=== PATIENT | male | born 1960 | race Hispanic/Latino ===

== ENCOUNTER 2017-06-27 11:07 | Emergency (ER) | payer BC, OTHER ==
[~2017-06-27] VITALS: Ht 167.6 cm; Wt 76.2 kg
[~2017-06-27 11:07] MED LIST: LIPITOR20 MG PO
[2017-06-27] MEDS ORDERED: SODIUM CHLORIDE 0.9% 1000ML 1,000 ML IV STA (11:14)
[2017-06-27] MEDS ORDERED: MORPHINE SULFATE 4 MG/ML SYR IV STA (11:14)
[2017-06-27] MEDS ORDERED: ONDANSETRON HCL 4 MG ORAL DISINTEGRATING TAB PO ONE (11:15)
[2017-06-27] MEDS ORDERED: MORPHINE SULFATE 2 MG/ML SYR ONE (11:50)
[2017-06-27 11:53] LABS: BASOPHILS % 0.2 % (0.0-1.0); EOSINOPHILS # (AUTO) 0.1 (0.0-0.4); EOSINOPHILS % 0.9 % (0.0-6.0); HEMATOCRIT 45.1 % (38.2-49.6); HEMOGLOBIN 15.1 g/dL (14.0-18.0); LYMPHOCYTES # (AUTO) 2.9 (1.0-3.2); LYMPHOCYTES % 34.1 % (18.0-39.1); MEAN CORPUSCULAR HEMOGLOBIN 30.9 pg (28-32); MEAN CORPUSCULAR HGB CONC 33.5 g/dL (31-35); MEAN CORPUSCULAR VOLUME 92.4 fL (81-99); MONOCYTES # (AUTO) 0.5 (0.2-0.8); MONOCYTES % 6.3 % (4.4-11.3); NEUTROPHILS % 58.2 % (38.7-80.0); PLATELET COUNT 123 x10e3/uL (140-360); RED BLOOD COUNT 4.88 x10e6/uL (4.3-5.7); RED CELL DISTRIBUTION WIDTH 13.7 % (11.7-14.4)
--- NOTE | 2017-06-27 11:59 | Diagnostic Imaging Report ---
EXAM: CT Abdomen and Pelvis WITH contrast INDICATION: Left flank pain for one hour, nausea COMPARISON: None. TECHNIQUE: Abdomen and pelvis were scanned utilizing a multidetector helical scanner from the lung base to the pubic symphysis after administration of IV contrast. Coronal and sagittal reformations were obtained. Routine protocol is performed. IV CONTRAST: None. ORAL CONTRAST: Water RADIATION DOSE: Total DLP: 398.35 mGy*cm Estimated effective dose: (DLP x 0.015 x size factor) mSv COMPLICATIONS: None FINDINGS: LINES and TUBES: None. LOWER THORAX: Unremarkable HEPATOBILIARY: No focal hepatic lesions. No biliary ductal dilation. GALLBLADDER: No radio-opaque stones or sludge. No wall thickening. SPLEEN: No splenomegaly. PANCREAS: No focal masses or ductal dilatation. ADRENALS: No adrenal nodules KIDNEYS/URETERS: No cystic or solid mass lesions. 3 mm stone in the left distal ureter (series 3, image 134) with mild left hydroureter. No hydronephrosis. No other renal or ureteral stones on either side. GI TRACT: No abnormal distention, wall thickening, or evidence of bowel obstruction. Small hiatal hernia. Sigmoid diverticulosis without evidence of acute diverticulitis. PELVIC ORGANS/BLADDER: Unremarkable. LYMPH NODES: No lymphadenopathy. VESSELS: Unremarkable. PERITONEUM / RETROPERITONEUM: No free air or fluid. There is fatty stranding at the root of the mesentery with a few prominent mesenteric lymph nodes. BONES: Unremarkable. SOFT TISSUES: Unremarkable. IMPRESSION: 1. 3 mm stone in the left distal ureter with mild left hydroureter. 2. Fatty stranding at the root of the mesentery ("lan mesentery" appearance). This is nonspecific and may be due to inflammatory conditions (such as retractile mesenteritis) or lymphoproliferative diseases. The clinical significance is unclear. Consider follow-up CT of the abdomen in 6 months to ensure stability. Rasheed Rousseau MD Signed by: Dr. Rasheed Rousseau M.D. on 06/27/2017 11:55 AM
[2017-06-27 12:01] LABS: COLOR,URINE YELLOW (YELLOW)
[2017-06-27 12:02] LABS: BILIRUBIN,URINE NEGATIVE (NEGATIVE); CLARITY,URINE HAZY (CLEAR); KETONES,URINE NEGATIVE (NEGATIVE); LEUKOCYTE ESTERASE ,URINE NEGATIVE (NEGATIVE); NITRITE,URINE NEGATIVE (NEGATIVE); PROTEIN,URINE DIPSTICK TRACE (NEGATIVE); URINE UROBILINOGEN 0.2 mg/dL (0.2 - 1)
[2017-06-27 12:11] LABS: WBC,URINE (MAN) 0-5 /HPF (0-5)
[2017-06-27 12:12] LABS: BACTERIA,URINE FEW /HPF; EPITHELIAL CELLS,URINE FEW /LPF
[2017-06-27 12:13] LABS: ALBUMIN/GLOBULIN RATIO 1.1 (0.8-2.0); ANION GAP 11.2 mmol/L (8-16); CALCIUM 9.8 mg/dL (8.4-10.2); CREATININE, SERUM 1.5 mg/dL (0.72-1.25); POTASSIUM 4.2 mmol/L (3.5-5.1)
[2017-06-27] MEDS ORDERED: HYDROMORPHONE 1MG/1ML INJ IV NR (12:16)
[2017-06-27] MEDS ORDERED: HYDROMORPHONE 1MG/1ML INJ IV STA (12:39)
[2017-06-27] MEDS ORDERED: HYDROMORPHONE 2MG/ML INJ IV NR (12:45)
[2017-06-27 14:10] VITALS: BP 140/95
== END 2017-06-27 14:12 | disposition home or self-care (01) ==
LOC: ER 11:07
DX: R10.32 Left lower quadrant pain (principal); R11.0 Nausea; N20.1 Calculus of ureter
CPT/HCPCS: 36415; 74176; 80053; 81001; 85025; 87086; 99284; J2270; J7030

== ENCOUNTER 2017-06-29 13:02 | Emergency (ER) | payer OTHER ==
[~2017-06-29] VITALS: Ht 167.6 cm; Wt 76.2 kg
--- OUTSIDE RECORDS SUMMARY | 2017-06-29 13:05 | XMS REPORT | Continuity of Care Document ---
Author Author [facility] Organization [facility] Address [address] [place] [address] Phone Unavailable Care Team Providers Care Computer Help Desk Representative Name Role Phone NO, PCP PCP Unavailable Insurance Providers Guarantor López Fowler Address [place] [phone] Email [email or web address] Payer [employer] Ppo Policy Number [id number] Subscriber's Name López Fowler Relationship 18 Self / Same As Patient Group Number [id number] Group Name [employer] Effective Date 10 Advance Directives Directive Response Recorded Date/Time Does the patient have an advance directive? No 08/14/12 10:48pm If yes, is advance directive on file with [facility]? No 08/14/12 10:48pm If not on file with [facility] will patient provide a copy? No 08/14/12 10:48pm Do you have a Directive to Physician? No 06/27/17 11:36am Do you have a Medical Power of Account Group Supervisor? No 06/27/17 11:36am Do you have an out of hospital Do Not Resuscitate Order? No 06/27/17 11:36am Do you have any special needs we should be aware of? No 06/27/17 11:36am Do you have a support person here with you today? Yes 06/27/17 11:36am Did patient receive Notice of Privacy Practices? Yes 06/27/17 11:36am Did patient receive patient rights and responsibilities? Yes 06/27/17 11:36am Problems No problem information available. Medications Current Home Medications Medication Dose Units Route Directions Days Qty Instructions Start Date Atorvastatin Calcium (Lipitor) 20 Mg Tablet 1 Tab Oral Rt Daily Social History Smoking Status Start Date Stop Date Never Smoker Hospital Discharge Instructions No hospital discharge instruction information available. Plan of Care Discharge Date 06/27/17 2:12pm Disposition HOME, SELF-CARE Condition at Discharge Stable Instructions/Education Provided Kidney Stones Forms Provided Work/School Excuse Prescriptions See Medication Section Referrals AIDE CORONA MD Address: [facility] [place] [address] Additional Instructions/Education 1. increase oral fluids 2. return to ed as needed 3. follow up with urologist in 1-2 days without fail Functional Status No functional status information available. Allergies, Adverse Reactions, Alerts No known allergies. Immunizations No immunization information available. Vital Signs Acute Vital Signs Vital Response Date/Time Pulse Pulse Rate (adult) 65 bpm (60 - 90) 06/27/2017 2:10pm Respiratory Rate 20 bpm (12 - 24) 06/27/2017 2:10pm Blood Pressure 140/95 mm Hg 06/27/2017 2:10pm Height 5 ft 6 in 06/27/2017 11:10am Weight 168 lb 06/27/2017 11:10am Body Mass Index 27.1 kg/m^2 06/27/2017 11:10am Results Laboratory Results Test Name Result Units Flags Reference Collection Date/Time Result Date/ Time Comments White Blood Count 8.58 x10e3/uL 4.8-10.8 06/27/2017 11:45am 06/27/2017 11:57am Red Blood Count 4.88 x10e6/uL 4.3-5.7 06/27/2017 11:45am 06/27/2017 11: 57am Hemoglobin 15.1 g/dL 14.0-18.0 06/27/2017 11:45am 06/27/2017 11:57am Hematocrit 45.1 % 38.2-49.6 06/27/2017 11:45am 06/27/2017 11:57am Mean Corpuscular Volume 92.4 fL 81-99 06/27/2017 11:45am 06/27/2017 11: 57am Mean Corpuscular Hemoglobin 30.9 pg 28-32 06/27/2017 11:452017 11:57am Mean Corpuscular Hemoglobin Concent 33.5 g/dL 31-35 06/27/2017 11:4506/27/2017 11:57am Red Cell Distribution Width 13.7 % 11.7-14.4 06/27/2017 11:452017 11:57am Platelet Count 123 x10e3/uL L 140-360 06/27/2017 11:4506/27/2017 11: 57am Neutrophils (%) (Auto) 58.2 % 38.7-80.0 06/27/2017 11:45am 06/27/2017 11:57am Lymphocytes (%) (Auto) 34.1 % 18.0-39.1 06/27/2017 11:4506/27/2017 11:57am Monocytes (%) (Auto) 6.3 % 4.4-11.3 06/27/2017 11:4506/27/2017 11: 57am Eosinophils (%) (Auto) 0.9 % 0.0-6.0 06/27/2017 11:4506/27/2017 11: 57am Basophils (%) (Auto) 0.2 % 0.0-1.0 06/27/2017 11:4506/27/2017 11: 57am IM GRANULOCYTES % 0.3 % 0.0-1.0 06/27/2017 11:4506/27/2017 11:57am Neutrophils # (Auto) 5.0 2.1-6.9 06/27/2017 11:4506/27/2017 11: 57am Lymphocytes # (Auto) 2.9 1.0-3.2 06/27/2017 11:45am 06/27/2017 11: 57am Monocytes # (Auto) 0.5 0.2-0.8 06/27/2017 11:4506/27/2017 11:57am Eosinophils # (Auto) 0.1 0.0-0.4 06/27/2017 11:4506/27/2017 11: 57am Basophils # (Auto) 0.0 0.0-0.1 06/27/2017 11:45am 06/27/2017 11:57am Absolute Immature Granulocyte (auto 0.03 x10e3/uL 0-0.1 06/27/2017 11: 45am 06/27/2017 11:57am Urine Color YELLOW YELLOW 06/27/2017 11:12am 06/27/2017 12:02pm Urine Clarity HAZY CLEAR 06/27/2017 11:1206/27/2017 12:02pm Urine Specific [place] 1.030 H 1.010-1.025 06/27/2017 11:12am 2017 12:02pm Urine pH 6 5 - 7 06/27/2017 11:1206/27/2017 12:02pm Urine Leukocyte Esterase NEGATIVE NEGATIVE 06/27/2017 11:12am 2017 12:02pm Urine Nitrite NEGATIVE NEGATIVE 06/27/2017 11:12am 06/27/2017 12: 02pm Urine Protein TRACE H NEGATIVE 06/27/2017 11:12am 06/27/2017 12:02pm Urine Glucose (UA) NEGATIVE NEGATIVE 06/27/2017 11:12am 06/27/2017 12 :02pm Urine Ketones NEGATIVE NEGATIVE 06/27/2017 11:12am 06/27/2017 12: 02pm Urine Urobilinogen 0.2 mg/dL 0.2 - 1 06/27/2017 11:12am 06/27/2017 12: 02pm Urine Bilirubin NEGATIVE NEGATIVE 06/27/2017 11:12am 06/27/2017 12: 02pm Urine Blood 3+ H NEGATIVE 06/27/2017 11:12am 06/27/2017 12:02pm Urine WBC 0-5 /HPF 0-5 06/27/2017 11:12am 06/27/2017 12:12pm Urine RBC 11-20 /HPF H 0-5 06/27/2017 11:12am 06/27/2017 12:12pm Urine Bacteria FEW /HPF NONE 06/27/2017 11:12am 06/27/2017 12:12pm Urine Epithelial Cells FEW /LPF NONE 06/27/2017 11:12am 06/27/2017 12: 12pm Sodium Level 138 mmol/L 136-145 06/27/2017 11:45am 06/27/2017 12:15pm Potassium Level 4.2 mmol/L 3.5-5.1 06/27/2017 11:45am 06/27/2017 12: 15pm Chloride Level 101 mmol/L 98-107 06/27/2017 11:4506/27/2017 12:15pm Carbon Dioxide Level 30 mmol/L H 22-29 06/27/2017 11:4506/27/2017 12: 15pm Anion Gap 11.2 mmol/L 8-16 06/27/2017 11:4506/27/2017 12:15pm Blood Urea Nitrogen 26 mg/dL 7-26 06/27/2017 11:4506/27/2017 12: 15pm Creatinine 1.50 mg/dL H 0.72-1.25 06/27/2017 11:4506/27/2017 12:15pm BUN/Creatinine Ratio 17 6-25 06/27/2017 11:4506/27/2017 12:15pm Estimat Glomerular Filtration Rate 49 ML/MIN L 60- 06/27/2017 11:45 12:15pm Ranges were taken from the National Kidney Disease Education Program and the National Kid[employer] Foundation literature. Reference ranges: 60 or greater: Normal 16-59 (for 3 consecutive months): Chronic kidney disease 15 or less: Kidney failure Glucose Level 145 mg/dL H 74-118 06/27/2017 11:4506/27/2017 12:15pm Calcium Level 9.8 mg/dL 8.4-10.2 06/27/2017 11:4506/27/2017 12:15pm Total Bilirubin 0.5 mg/dL 0.2-1.2 06/27/2017 11:4506/27/2017 12: 15pm Aspartate Amino Transf (AST/SGOT) 17 IU/L 5-34 06/27/2017 11:4506/27 12:15pm Alanine Aminotransferase (ALT/SGPT) 30 IU/L 0-55 06/27/2017 11:4501/2018 12:15pm Total Protein 7.5 g/dL 6.5-8.1 06/27/2017 11:4506/27/2017 12:15pm Albumin 4.0 g/dL 3.5-5.0 06/27/2017 11:4506/27/2017 12:15pm Globulin 3.5 g/dL 2.3-3.5 06/27/2017 11:4506/27/2017 12:15pm Albumin/Globulin Ratio 1.1 0.8-2.0 06/27/2017 11:45am 06/27/2017 12: 15pm Alkaline Phosphatase 83 IU/L 40-150 06/27/2017 11:45am 06/27/2017 12: 15pm Procedures Procedure Status Date Provider(s) CT of abdomen and pelvis without contrast Active 06/27/17 KODY ANNE PETROGRAPHER Encounters Encounter Location Arrival/Admit Date Discharge/Depart Date Attending Provider Departed Emergency Room [facility] 06/27/17 11:07am 06/27 2:12pm REINIER GALVAN MD
--- OUTSIDE RECORDS SUMMARY | 2017-06-29 13:05 | XMS REPORT ---
Author Author [facility] Address Unknown Phone Unavailable Care Team Providers Care Doctor Osteopathic Name Role Phone REINIER GALVAN Unavailable Unavailable Problems This patient has no known problems. Allergies, Adverse Reactions, Alerts This patient has no known allergies or adverse reactions. Medications This patient has no known medications. Results Test Description Test Time Test Comments Text Results Atomic Results Result Comments CT ABDOMEN/PELVIS [place] [address] Patient Name: LÓPEZ LIMA MR #: [id number] : 1960 Age/Sex: 57/M Req #: [id number] Adm Physician: Ordered by: KODY ANNE OFFICE TECHNICIAN Report #: [id number] Location: ER Room/Bed: Procedure: [id number] CT/CT ABDOMEN/PELVIS WO Exam Date: 06/27/17 Exam Time: 1137 REPORT STATUS: Signed EXAM: CT Abdomen and Pelvis WITH contrast INDICATION: Left flank pain for one hour, nausea COMPARISON: None. TECHNIQUE: Abdomen and pelvis were scanned utilizing a multidetector helical scanner from the lung base to the pubic symphysis after administration of IV contrast. Coronal and sagittal reformations were obtained. Routine protocol is performed. IV CONTRAST: None. ORAL CONTRAST: Water RADIATION DOSE: Total DLP: 398.35 mGy*cm Estimated effective dose: (DLP x 0.015 x size factor) mSv COMPLICATIONS: None FINDINGS: LINES and TUBES: None. LOWER THORAX: Unremarkable HEPATOBILIARY: No focal hepatic lesions. No biliary ductal dilation. GALLBLADDER: No radio-opaque stones or sludge. No wall thickening. SPLEEN: No splenomegaly. PANCREAS: No focal masses or ductal dilatation. ADRENALS: No adrenal nodules KIDNEYS/URETERS: No cystic or solid mass lesions. 3 mm stone in the left distal ureter (series 3, image 134) with mild left hydroureter. No hydronephrosis. No other renal or ureteral stones on either side. GI TRACT: No abnormal distention, wall thickening, or evidence of bowel obstruction. Small hiatal hernia. Sigmoid diverticulosis without evidence of acute diverticulitis. PELVIC ORGANS/BLADDER: Unremarkable. LYMPH NODES: No lymphadenopathy. VESSELS: Unremarkable. PERITONEUM / RETROPERITONEUM: No free air or fluid. There is fatty stranding at the root of the mesentery with a few prominent mesenteric lymph nodes. BONES: Unremarkable. SOFT TISSUES: Unremarkable. IMPRESSION: 1. 3 mm stone in the left distal ureter with mild left hydroureter. 2. Fatty stranding at the root of the mesentery ("lan mesentery" appearance). This is nonspecific and may be due to inflammatory conditions (such as retractile mesenteritis) or lymphoproliferative diseases. The clinical significance is unclear. Consider follow-up CT of the abdomen in 6 months to ensure stability. Ashley Rousseau MD Signed by: Dr. Ashley Rousseau M.D. on 06/27/2017 11:55 AM Dictated By: ASHLEY ROUSSEAU MD [id number] Transcribed By: BECCA on 06/27/17 7330 COPY TO: KODY ANNE NP
[2017-06-29] MEDS ORDERED: HYDROMORPHONE 1MG/1ML INJ IV STA (13:53)
[2017-06-29] MEDS ORDERED: SODIUM CHLORIDE 0.9% 1000ML 1,000 ML IV STA (13:53)
[2017-06-29] MEDS ORDERED: ONDANSETRON HCL 4 MG ORAL DISINTEGRATING TAB PO ONE (14:00)
[2017-06-29 14:02] LABS: BASOPHILS % 0.1 % (0.0-1.0); HEMATOCRIT 41.8 % (38.2-49.6); HEMOGLOBIN 14.4 g/dL (14.0-18.0); LYMPHOCYTES # (AUTO) 0.5 (1.0-3.2); LYMPHOCYTES % 5.3 % (18.0-39.1); MEAN CORPUSCULAR HEMOGLOBIN 31.2 pg (28-32); MEAN CORPUSCULAR HGB CONC 34.4 g/dL (31-35); MEAN CORPUSCULAR VOLUME 90.7 fL (81-99); MONOCYTES # (AUTO) 0.6 (0.2-0.8); MONOCYTES % 6.3 % (4.4-11.3); NEUTROPHILS # (AUTO) 8.5 (2.1-6.9); NEUTROPHILS % 87.8 % (38.7-80.0); PLATELET COUNT 103 x10e3/uL (140-360); RED BLOOD COUNT 4.61 x10e6/uL (4.3-5.7); RED CELL DISTRIBUTION WIDTH 13.5 % (11.7-14.4)
[2017-06-29 14:14] LABS: ALBUMIN 3.8 g/dL (3.5-5.0); ANION GAP 11.9 mmol/L (8-16); CALCIUM 9.1 mg/dL (8.4-10.2); CREATININE, SERUM 1.81 mg/dL (0.72-1.25); POTASSIUM 3.9 mmol/L (3.5-5.1)
[2017-06-29 14:45] LABS: BILIRUBIN,URINE NEGATIVE (NEGATIVE); CLARITY,URINE CLEAR (CLEAR); COLOR,URINE YELLOW (YELLOW); KETONES,URINE NEGATIVE (NEGATIVE); LEUKOCYTE ESTERASE ,URINE NEGATIVE (NEGATIVE); NITRITE,URINE NEGATIVE (NEGATIVE); PROTEIN,URINE DIPSTICK NEGATIVE (NEGATIVE); URINE UROBILINOGEN 0.2 mg/dL (0.2 - 1)
[2017-06-29 14:57] LABS: MUCUS,URINE FEW (RARE); WBC,URINE (MAN) 0-5 /HPF (0-5)
[2017-06-29 15:19] LABS: LYMPHOCYTES % (MANUAL) 3 % (19-48); MONOCYTES % (MANUAL) 5 % (3.4-9.0); NEUTROPHILS % (MANUAL) 90 % (40-74); PLATELET ESTIMATE SLIGHTLY DECREASED; PLATELET MORPHOLOGY COMMENT FEW LARGE; RBC MORPHOLOGY COMMENT NORMAL
[2017-06-29] MEDS ORDERED: ONDANSETRON HCL 4 MG ORAL DISINTEGRATING TAB ONE (15:19)
[2017-06-29] MEDS ORDERED: SODIUM CHLORIDE 0.9% 1000ML 1,000 ML ONE (16:43)
[2017-06-29] MEDS ORDERED: SODIUM CHLORIDE 0.9% 1000ML 1,000 ML IV SCH (17:00)
[2017-06-29] MEDS ORDERED: KETOROLAC TROMETHAMINE 30 MG/ML VIAL IV STA (17:09)
== END 2017-06-29 18:48 | disposition home or self-care (01) ==
LOC: ER 13:02
DX: R10.9 Unspecified abdominal pain (principal); R11.0 Nausea; N20.1 Calculus of ureter; J98.4 Other disorders of lung
CPT/HCPCS: 36415; 80053; 81001; 85025; 99284; J1885; J7030